=== PATIENT | female | born 1935 | race Caucasian/White ===

== ENCOUNTER 2018-04-03 12:14 | Inpatient (IN) | payer OTHER ==
[~2018-04-03] VITALS: Ht 165.1 cm; Wt 54.1 kg
[2018-04-03] MEDS ORDERED: ASPIRIN ADULT L81 M5 PO (12:27)
[2018-04-03] MEDS ORDERED: EVISTA60 MG PO (12:28)
[2018-04-03] MEDS ORDERED: NAMZARIC1 ECC (12:28)
[2018-04-03] MEDS ORDERED: ABILIFY5 M1 PO (12:29)
[2018-04-03] MEDS ORDERED: DYA PO (12:30)
[2018-04-03] MEDS ORDERED: ATROVENT (12:30)
[2018-04-03 13:05] LABS: BASOPHIL % 0.4 % (0-2); PLATELET COUNT 116 x10^3mcL (130-400); RED CELL DISTRIBUTION WIDTH 14.2 % (11.5-14.5)
[2018-04-03 13:10] LABS: CALCIUM 9.3 mg/dL (8.5-10.1); CARBON DIOXIDE 33.8 mmol/L (21-32); CHLORIDE SERUM 107 mmol/L (98-107); CREATININE SERUM 1.3 mg/dL (0.6-1.0); GLUCOSE SERUM 131 mg/dL (74-106); POTASSIUM SERUM 3.9 mmol/L (3.5-5.1); SODIUM SERUM 147 mmol/L (136-145)
[2018-04-03 15:02] LABS: MAGNESIUM 2.1 mg/dL (1.8-2.4); PHOSPHOROUS 3.1 mg/dL (2.5-4.9)
[2018-04-03 15:03] LABS: CHOLESTEROL/HDL RATIO 2.7
[2018-04-03 15:08] LABS: T3 TOTAL 0.81 ng/mL
[2018-04-03 15:13] LABS: FREE T4 0.99 ng/dL (0.76-1.46); FREE THYROXINE INDEX 2.7 ug/dL (1.4-4.5); T4(THYROXINE) 7.2 ug/dL (4.7-13.3)
[2018-04-03 15:40] VITALS: BP 119/56
[2018-04-03 15:54] VITALS: Ht 165.1 cm; Wt 54.1 kg
[2018-04-03 18:48] VITALS: BP 110/61
[2018-04-03 20:53] VITALS: BP 111/38
[2018-04-04 05:39] VITALS: BP 129/51
[2018-04-04 05:56] LABS: CALCIUM 8.3 mg/dL (8.5-10.1); CARBON DIOXIDE 28.9 mmol/L (21-32); CHLORIDE SERUM 107 mmol/L (98-107); CREATININE SERUM 0.9 mg/dL (0.6-1.0); GLUCOSE SERUM 96 mg/dL (74-106); POTASSIUM SERUM 3.2 mmol/L (3.5-5.1); SODIUM SERUM 144 mmol/L (136-145)
[2018-04-04 06:06] LABS: BASOPHIL % 0.2 % (0-2); RED CELL DISTRIBUTION WIDTH 14.4 % (11.5-14.5)
[2018-04-04 06:53] LABS: PLATELET COUNT 108 x10^3mcL (130-400)
[2018-04-04 08:05] VITALS: BP 121/48
[2018-04-04 13:26] VITALS: BP 104/41
[2018-04-04 18:02] VITALS: BP 122/50
[2018-04-04 20:07] VITALS: BP 120/45
[2018-04-05 05:30] VITALS: BP 121/45
[2018-04-05 06:22] LABS: BASOPHIL % 0.3 % (0-2); RED CELL DISTRIBUTION WIDTH 13.8 % (11.5-14.5)
[2018-04-05 06:37] LABS: PLATELET COUNT 124 x10^3mcL (130-400)
[2018-04-05 06:49] LABS: CALCIUM 8.4 mg/dL (8.5-10.1); CARBON DIOXIDE 29.2 mmol/L (21-32); CHLORIDE SERUM 109 mmol/L (98-107); CREATININE SERUM 0.8 mg/dL (0.6-1.0); GLUCOSE SERUM 84 mg/dL (74-106); POTASSIUM SERUM 3.4 mmol/L (3.5-5.1); SODIUM SERUM 140 mmol/L (136-145)
[2018-04-05 09:45] VITALS: BP 108/49
[2018-04-05 13:03] VITALS: BP 133/58
[2018-04-05 17:56] VITALS: BP 140/53
[2018-04-05 20:26] VITALS: BP 103/70
[2018-04-06 04:49] VITALS: BP 148/50
[2018-04-06 06:03] LABS: CALCIUM 8.4 mg/dL (8.5-10.1); CARBON DIOXIDE 27.4 mmol/L (21-32); CHLORIDE SERUM 109 mmol/L (98-107); CREATININE SERUM 0.7 mg/dL (0.6-1.0); GLUCOSE SERUM 92 mg/dL (74-106); POTASSIUM SERUM 3.3 mmol/L (3.5-5.1); SODIUM SERUM 146 mmol/L (136-145)
[2018-04-06 06:07] LABS: BASOPHIL % 0.3 % (0-2); PLATELET COUNT 138 x10^3mcL (130-400)
[2018-04-06 09:59] VITALS: BP 102/45
[2018-04-06 12:43] VITALS: BP 126/49
[2018-04-06] MEDS ORDERED: LEVAQUIN750 MG PO (13:57)
[2018-04-06] MEDS ORDERED: CLEOCIN HCL300 MG PO (13:58)
[2018-04-06] MEDS ORDERED: LAC PO (13:58)
[2018-04-06 14:38] VITALS: BP 126/49
== END 2018-04-06 16:18 | disposition hospice, home (50) | DRG 56 ==
LOC: ED 12:14 → DU 13:50 → MU 13:50 → DU 15:18 → MU 04-06 09:17
PROVIDERS: Emergency Medicine; Family Medicine
DX: G30.9 Alzheimer's disease, unspecified (principal); G93.41 Metabolic encephalopathy; N17.0 Acute kidney failure with tubular necrosis; E87.0 Hyperosmolality and hypernatremia; E86.0 Dehydration; F02.80 Dementia in other diseases classified elsewhere, unspecified severity, without behavioral disturbance, psychotic disturbance, mood disturbance, and anxiety; E11.65 Type 2 diabetes mellitus with hyperglycemia; E87.6 Hypokalemia; I48.91 Unspecified atrial fibrillation; D64.9 Anemia, unspecified; E78.5 Hyperlipidemia, unspecified; I10 Essential (primary) hypertension; Z66 Do not resuscitate; Z79.82 Long term (current) use of aspirin; Z68.21 Body mass index [BMI] 21.0-21.9, adult
CPT/HCPCS: 83880; 84439; 97110-GP; 97530-GP; J2543; J3010; J7030; Q0092